=== PATIENT | male | born 2005 | race Caucasian/White ===

== ENCOUNTER 2023-01-02 13:16 | Emergency (ER) | payer MEDICAID, OTHER ==
[~2023-01-02] VITALS: Ht 177.8 cm; Wt 69.0 kg
[~2023-01-02 13:16] MED LIST: FLOVENT; IBUPROFEN; PROAIR; [UNRECOGNIZED DRUG - OTHER]
[2023-01-02 13:56] VITALS: O2SAT 98
[2023-01-02] MEDS ORDERED: CEFTRIAXONE SODIUM 1 G/VIAL IM ONE (16:45)
[2023-01-02] MEDS ORDERED: LIDOCAINE HCL/PF 1% 10 MG/ML 5ML VIAL INFIL ONE ×2 (16:45)
[2023-01-02] MEDS ORDERED: TETANUS, DIPHTHERIA, PERTUSSIS VAC/PF 0.5ML (>10YR OLD) IM ONE (16:45)
[2023-01-02] MEDS ORDERED: BACITRACIN ZINC OINT UDPKT TOP ONE (16:45)
[2023-01-02] MEDS ORDERED: CEFTRIAXONE SODIUM 1 G/VIAL IM NR (17:15)
[2023-01-02] MEDS ORDERED: CEPH500T MT (18:38)
[2023-01-02] MEDS ORDERED: BO1 TP (18:38)
[2023-01-02 19:16] VITALS: BP 120/80; PULSE 86; RESP 18; TEMP 98.7
== END 2023-01-02 19:15 | disposition home or self-care (01) ==
LOC: ER 13:55
DX: S61.302A Unspecified open wound of right middle finger with damage to nail, initial encounter (principal); X58.XXXA Exposure to other specified factors, initial encounter; Y93.89 Activity, other specified; Y92.89 Other specified places as the place of occurrence of the external cause; Y99.8 Other external cause status
CPT/HCPCS: 73140; 90715; 11740; 90471; 96372; 99284; J0696; J3490; Z7610 ×2